=== PATIENT | male | born 1930 | race Caucasian/White ===

== ENCOUNTER 2019-01-17 10:22 | Observation (INO) | payer MEDICARE, OTHER ==
--- NOTE | 2019-01-17 10:38 | EDM.PDOC ---
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 He tells me that he has had pretty profuse diarrhea since then. He reports that he has had watery, nonbloody stools about every 30 minutes since yesterday. He has been feeling somewhat weak when getting up. He took a shower this morning and the went in to check on him because he was taking a long period of time. She found him sitting on the toilet and he reported feeling weak and then apparently he fell off the toilet to the floor. She reports that he did not go out completely and he was talking to her pretty quickly after this. He presents via private vehicle with his family. Denies any abdominal pain. In fact, he reports no pain. He rates his pain as a 0/10. He reports that he has had nausea but no vomiting and he has not had any pain during the entire course of this illness thus far. No fevers. No chills. He has had decreased urine output. No burning with urination. There are no other associated signs or symptoms. There are no other modifying factors. Onset: Other (Midnight between Friday and Friday of this week) Duration: Constant Location: Reports: Other (No pain.) Quality: Reports: Other (None. 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 (see below) (Nothing) - Related Data Allergies Allergy/AdvReac Type Severity Reaction Status Date / Time No Known Allergies Allergy Verified 01/17/19 12:03 Past Medical History Cardiovascular History: Reports: Hypertension - Past Surgical History HEENT Surgical History: Reports: Tonsillectomy Social & Family History - Tobacco Use Smoking Status *Q: Former Smoker (States he quit smoking when he was 50 years of age.) - Alcohol Use Alcohol Use History: No - Living Situation & Occupation Living situation: Reports: (He is here with his .) Occupation: Retired (Retired garcia.) ED ROS GENERAL - Review of Systems Review Of Systems: See Below Constitutional: Reports: Weakness, Fatigue HEENT: Reports: Other (Dry mouth) Respiratory: Reports: No Symptoms Cardiovascular: Reports: No Symptoms Endocrine: Reports: Fatigue GI/Abdominal: Reports: Diarrhea, Nausea. Denies: Abdominal Pain : Reports: Other (Decreased urine output). Denies: Dysuria, Hematuria Musculoskeletal: Reports: No Symptoms Skin: Reports: No Symptoms Neurological: Reports: Syncope (Near syncope this morning.) Hematologic/Lymphatic: Reports: No Symptoms Immunologic: Reports: No Symptoms ED EXAM, GI/ABD - Physical Exam Exam: See Below Exam Limited By: No Limitations General Appearance: Alert, WD/WN, Moderate Distress Eyes: Bilateral: Normal Appearance, EOMI Ears: Normal External Exam, Hearing Grossly Normal Nose: Normal Inspection, Normal Mucosa, No Blood Throat/Mouth: Normal Lips, Normal Voice, No Airway Compromise, Other (Dry mucous membranes) Head: Atraumatic, Normocephalic Neck: Normal Inspection, Supple, Non-Tender, Full Range of Motion Respiratory/Chest: No Respiratory Distress, Lungs Clear, Normal Breath Sounds, No Accessory Muscle Use, Chest Non-Tender Cardiovascular: Normal Peripheral Pulses, Regular Rate, Rhythm, No Murmur GI/Abdominal Exam: Normal Bowel Sounds, Soft, Non-Tender, No Mass Back Exam: Normal Inspection Extremities: Normal Inspection, Normal Range of Motion, Non-Tender, No Pedal Edema, Normal Capillary Refill Neurological: Alert, Oriented, CN II-XII Intact, Normal Cognition, No Motor/ Sensory Deficits Skin Exam: Warm, Dry, Intact, Normal Color, No Rash EKG INTERPRETATION EKG Date: 01/17/19 Time: 10:34 Rhythm: NSR Rate (Beats/Min): 61 Beccaria: LAD-Left Beccaria Deviation P-Wave: Present QRS: LBBB (Left anterior fascicular block) ST-T: Other (Diffuse nonspecific ST-T changes) QT: Prolonged Comparison: NA - No Prior EKG Course - Vital Signs Last Recorded V/S: Last Vital Signs Temp 36.1 C 01/17/19 10:22 Pulse 67 01/17/19 10:22 Resp 18 01/17/19 10:22 BP 90/52 L 01/17/19 10:22 Pulse Ox 100 01/17/19 10:22 - Orders/Labs/Meds Orders: Active Orders 24 hr Category Date Time Status EKG Documentation Completion [RC] ASDIRECTED Care 01/17/19 10:53 Active UA W/MICROSCOPIC [URIN] Stat Lab 01/17/19 11:53 Ordered Sodium Chloride 0.9% [Normal Saline] 1,000 ml Med 01/17/19 12:15 Active IV ASDIRECTED Sodium Chloride 0.9% [Saline Flush] Med 01/17/19 10:52 Active 10 ml FLUSH ASDIRECTED PRN Peripheral IV Insertion Adult [OM.PC] Routine Oth 01/17/19 10:52 Ordered EKG 12 Lead [EK] Routine Ther 01/17/19 10:52 Ordered Medication Orders Sodium Chloride (Normal Saline) 1,000 mls @ 999 mls/hr IV ASDIRECTED SOHAN Sodium Chloride (Saline Flush) 10 ml FLUSH ASDIRECTED PRN PRN Reason: Keep Vein Open Labs: Laboratory Tests 01/17/19 01/17/19 01/17/19 Range/Units 10:55 10:55 10:55 WBC 10.0 (4.5-12.0) X10-3/uL RBC 4.79 (4.30-5.75) x10(6)uL Hgb 15.3 (13.5-17.8) g/dL Hct 44.9 (30.0-51.3) % MCV 93.8 (80-96) fL MCH 31.9 (27.7-33.6) pg MCHC 34.0 (32.2-35.4) g/dL RDW 12.0 (11.5-15.5) % Plt Count 265 (125-369) X10(3)uL MPV 8.2 (7.4-10.4) fL Neut % (Auto) 73.5 (46-82) % Lymph % (Auto) 17.5 (13-37) % [place] % (Auto) 8.3 (4-12) % Eos % (Auto) 0 L (1.0-5.0) % Baso % (Auto) 1 (0-2) % Neut # (Auto) 7.3 (1.6-8.3) # Lymph # (Auto) 1.8 (0.6-5.0) # [place] # (Auto) 0.8 (0.0-1.3) # Eos # (Auto) 0.0 (0.0-0.8) # Baso # (Auto) 0.1 (0.0-0.2) # Sodium 129 L (135-145) mmol/L Potassium 3.8 (3.5-5.3) mmol/L Chloride 93 L (100-110) mmol/L Carbon Dioxide 23 (21-32) mmol/L BUN 1 L (7-18) mg/dL Creatinine 2.3 H* (0.70-1.30) mg/dL Est Cr Clr Drug Dosing TNP Estimated GFR (MDRD) 27 L (>60) BUN/Creatinine Ratio 0.4 L (9-20) Glucose 133 H (80-116) mg/dL Lactic Acid (0.4-2.2) mmol/L Calcium 8.8 (8.6-10.2) mg/dL Magnesium 2.0 (1.8-2.5) mg/dL Total Bilirubin 0.5 (0.1-1.3) mg/dL AST 20 (5-25) IU/L ALT 28 (12-36) U/L Alkaline Phosphatase 73 (56-112) IU/L C-Reactive Protein 6.2 H* (0.5-0.9) mg/dL Total Protein 8.2 H (6.0-8.0) g/dL Albumin 3.8 (3.2-4.6) g/dL Globulin 4.4 g/dL Albumin/Globulin Ratio 0.9 01/17/19 Range/Units 10:55 WBC (4.5-12.0) X10-3/uL RBC (4.30-5.75) x10(6)uL Hgb (13.5-17.8) g/dL Hct (30.0-51.3) % MCV (80-96) fL MCH (27.7-33.6) pg MCHC (32.2-35.4) g/dL RDW (11.5-15.5) % Plt Count (125-369) X10(3)uL MPV (7.4-10.4) fL Neut % (Auto) (46-82) % Lymph % (Auto) (13-37) % [place] % (Auto) (4-12) % Eos % (Auto) (1.0-5.0) % Baso % (Auto) (0-2) % Neut # (Auto) (1.6-8.3) # Lymph # (Auto) (0.6-5.0) # [place] # (Auto) (0.0-1.3) # Eos # (Auto) (0.0-0.8) # Baso # (Auto) (0.0-0.2) # Sodium (135-145) mmol/L Potassium (3.5-5.3) mmol/L Chloride (100-110) mmol/L Carbon Dioxide (21-32) mmol/L BUN (7-18) mg/dL Creatinine (0.70-1.30) mg/dL Est Cr Clr Drug Dosing Estimated GFR (MDRD) (>60) BUN/Creatinine Ratio (9-20) Glucose (80-116) mg/dL Lactic Acid 1.4 (0.4-2.2) mmol/L Calcium (8.6-10.2) mg/dL Magnesium (1.8-2.5) mg/dL Total Bilirubin (0.1-1.3) mg/dL AST (5-25) IU/L ALT (12-36) U/L Alkaline Phosphatase (56-112) IU/L C-Reactive Protein (0.5-0.9) mg/dL Total Protein (6.0-8.0) g/dL Albumin (3.2-4.6) g/dL Globulin g/dL Albumin/Globulin Ratio Meds: Medications Generic Name Dose Route Start Last Admin Trade Name Freq PRN Reason Stop Dose Admin Sodium Chloride 1,000 mls @ 999 mls/hr 01/17/19 12:15 Normal Saline IV ASDIRECTED SOHAN Sodium Chloride 10 ml 01/17/19 10:52 Saline Flush FLUSH ASDIRECTED PRN Keep Vein Open Discontinued Medications Generic Name Dose Route Start Last Admin Trade Name Freq PRN Reason Stop Dose Admin Sodium Chloride 1,000 mls @ 999 mls/hr 01/17/19 10:53 Normal Saline IV 01/17/19 11:53 .BOLUS ONE Ondansetron HCl 4 mg 01/17/19 10:53 Zofran IVPUSH 01/17/19 10:54 ONETIME ONE - Re-Assessments/Exams Free Text/Narrative Re-Assessment/Exam: 01/17/19 12:15: Patient's blood tests show creatinine of 2.3. His EKG showed no injury pattern. He has received 1 L of normal saline and still has had no urine output. His blood pressure has randy to the 130s systolic range. He does feel somewhat improved. He has evidence of fairly significant dehydration with an acute kidney injury with a near syncopal episode this morning and has had hypotension. He will need admission for IV fluids and close monitoring. This plan of care cannot be safely accomplished as an outpatient. He would have significant increase in morbidity and possibly even mortality with attempts at outpatient management of this. I discussed this with the patient and his and they are in agreement with the plans for admission. I discussed the patient' s case with Dr. Shirley, hospitalist at [facility], and he has agreed to admit the patient. Departure - Departure Time of Disposition: 12:25 Disposition: Refer to Observation Condition: Fair (Stable) Clinical Impression: Severe dehydration, Acute kidney injury Diarrhea Qualifiers: Diarrhea type: unspecified type Qualified Code(s): R19.7 - Diarrhea, unspecified - Discharge Information - My Orders Last 24 Hours: My Active Orders 01/17/19 10:52 Sodium Chloride 0.9% [Saline Flush] 10 ml FLUSH ASDIRECTED PRN Peripheral IV Insertion Adult [OM.PC] Routine EKG 12 Lead [EK] Routine 01/17/19 10:53 EKG Documentation Completion [RC] ASDIRECTED 01/17/19 11:53 UA W/MICROSCOPIC [URIN] Stat 01/17/19 12:15 Sodium Chloride 0.9% [Normal Saline] 1,000 ml IV ASDIRECTED - Assessment/Plan Last 24 Hours: My Active Orders 01/17/19 10:52 Sodium Chloride 0.9% [Saline Flush] 10 ml FLUSH ASDIRECTED PRN Peripheral IV Insertion Adult [OM.PC] Routine EKG 12 Lead [EK] Routine 01/17/19 10:53 EKG Documentation Completion [RC] ASDIRECTED 01/17/19 11:53 UA W/MICROSCOPIC [URIN] Stat 01/17/19 12:15 Sodium Chloride 0.9% [Normal Saline] 1,000 ml IV ASDIRECTED
[2019-01-17] MEDS: Sodium Chloride 0.9% 1,000 ML IV ONE ×2 (10:45→15:18)
[2019-01-17] MEDS ORDERED: Sodium Chloride 0.9% 10 ML Syringe FLUSH PRN (10:52)
[2019-01-17] MEDS ORDERED: Ondansetron 4 MG/2 ML SDV IVPUSH ONE (10:53)
[2019-01-17] MEDS ORDERED: Ondansetron 4 MG/2 ML SDV IVPUSH PRN (13:37)
--- NOTE | 2019-01-17 13:42 | PCM.HP.2 ---
H&P History of Present Illness - General Date of Service: 01/17/19 Admit Problem/Dx: Admission Diagnosis/Problem Admission Diagnosis/Problem Severe dehydration Source of Information: Patient History Limitations: Reports: No Limitations - History of Present Illness Initial Comments - Free Text/Narative: This is an 88-year-old male patient became to the ER because of weakness and diarrhea. 36 hours before he was seen in the ER which is today he started having severe diarrhea. It happened right after midnight on Friday he said he was up all night with watery diarrhea with no blood. He continued to have diarrhea and finally this morning he got up and says it finally stopped. He went to the toilet and his went to check on him and he couldn't really get up in a car slid off the toilet. He is brought into the ambulance per car. Denies abdominal pain, nausea vomiting, fevers, chills, cough, nasal congestion. He's had no recent antibiotic use according to the patient and is not travel to any third world countries. He denies any exposures. - Related Data Allergies/Adverse Reactions: Allergies Allergy/AdvReac Type Severity Reaction Status Date / Time No Known Allergies Allergy Verified 01/17/19 12:03 Past Medical History Cardiovascular History: Reports: Hypertension - Past Surgical History HEENT Surgical History: Reports: Tonsillectomy Social & Family History - Tobacco Use Smoking Status *Q: Former Smoker (States he quit smoking when he was 50 years of age.) - Living Situation & Occupation Living situation: Reports: (He is here with his .) Occupation: Retired (Retired garcia.) H&P Review of Systems - Review of Systems: Review Of Systems: See Below General: Reports: Weakness HEENT: Reports: No Symptoms Pulmonary: Reports: No Symptoms Cardiovascular: Reports: No Symptoms Gastrointestinal: Reports: Diarrhea, Decreased Appetite. Denies: Abdominal Pain , Bloody Stool, Constipation, Difficulty Swallowing, Melena, Nausea, Vomiting Genitourinary: Reports: No Symptoms Musculoskeletal: Reports: No Symptoms Skin: Reports: No Symptoms Psychiatric: Reports: No Symptoms Neurological: Reports: No Symptoms Hematologic/Lymphatic: Reports: No Symptoms Immunologic: Reports: No Symptoms Exam - Exam Exam: See Below - Vital Signs Vital Signs: Last Vital Signs Temp 97.0 F 01/17/19 10:22 Pulse 67 01/17/19 10:22 Resp 18 01/17/19 10:22 BP 90/52 L 01/17/19 10:22 Pulse Ox 100 01/17/19 10:22 Weight: 135 lb - Exam General: Alert, Oriented, 4 HEENT: Hearing Intact, Mucosa Moist & [place], Posterior Pharynx Clear, TMs Clear Neck: Supple, Trachea Midline. No: +2 Carotid Pulse wo Bruit, Lymphadenopathy, Carotid Bruit, JVD Lungs: Clear to Auscultation, Normal Respiratory Effort. No: Crackles, Rales, Rhonchi, Rub Cardiovascular: Regular Rate, Regular Rhythm. No: Irregular Rhythm, Systolic Murmur GI/Abdominal Exam: Normal Bowel Sounds, Soft, Non-Tender, No Organomegaly, No Distention, No Abnormal Bruit, No Mass Back Exam: Normal Inspection, Full Range of Motion Extremities: Normal Inspection, No Pedal Edema Skin: Warm, Dry, Intact Neurological: Normal Speech, Normal Tone Neuro Extensive - Mental Status: Alert, Oriented x3, Normal Cognition Psychiatric: Alert - Patient Data Lab Results Last 24 hrs: Laboratory Results - last 24 hr 01/17/19 01/17/19 01/17/19 Range/Units 10:55 10:55 10:55 WBC 10.0 (4.5-12.0) X10-3/uL RBC 4.79 (4.30-5.75) x10(6)uL Hgb 15.3 (13.5-17.8) g/dL Hct 44.9 (30.0-51.3) % MCV 93.8 (80-96) fL MCH 31.9 (27.7-33.6) pg MCHC 34.0 (32.2-35.4) g/dL RDW 12.0 (11.5-15.5) % Plt Count 265 (125-369) X10(3)uL MPV 8.2 (7.4-10.4) fL Neut % (Auto) 73.5 (46-82) % Lymph % (Auto) 17.5 (13-37) % [place] % (Auto) 8.3 (4-12) % Eos % (Auto) 0 L (1.0-5.0) % Baso % (Auto) 1 (0-2) % Neut # (Auto) 7.3 (1.6-8.3) # Lymph # (Auto) 1.8 (0.6-5.0) # [place] # (Auto) 0.8 (0.0-1.3) # Eos # (Auto) 0.0 (0.0-0.8) # Baso # (Auto) 0.1 (0.0-0.2) # Sodium 129 L (135-145) mmol/L Potassium 3.8 (3.5-5.3) mmol/L Chloride 93 L (100-110) mmol/L Carbon Dioxide 23 (21-32) mmol/L BUN 1 L (7-18) mg/dL Creatinine 2.3 H* (0.70-1.30) mg/dL Est Cr Clr Drug Dosing TNP Estimated GFR (MDRD) 27 L (>60) BUN/Creatinine Ratio 0.4 L (9-20) Glucose 133 H (80-116) mg/dL Lactic Acid (0.4-2.2) mmol/L Calcium 8.8 (8.6-10.2) mg/dL Magnesium 2.0 (1.8-2.5) mg/dL Total Bilirubin 0.5 (0.1-1.3) mg/dL AST 20 (5-25) IU/L ALT 28 (12-36) U/L Alkaline Phosphatase 73 (56-112) IU/L C-Reactive Protein 6.2 H* (0.5-0.9) mg/dL Total Protein 8.2 H (6.0-8.0) g/dL Albumin 3.8 (3.2-4.6) g/dL Globulin 4.4 g/dL Albumin/Globulin Ratio 0.9 01/17/19 Range/Units 10:55 WBC (4.5-12.0) X10-3/uL RBC (4.30-5.75) x10(6)uL Hgb (13.5-17.8) g/dL Hct (30.0-51.3) % MCV (80-96) fL MCH (27.7-33.6) pg MCHC (32.2-35.4) g/dL RDW (11.5-15.5) % Plt Count (125-369) X10(3)uL MPV (7.4-10.4) fL Neut % (Auto) (46-82) % Lymph % (Auto) (13-37) % [place] % (Auto) (4-12) % Eos % (Auto) (1.0-5.0) % Baso % (Auto) (0-2) % Neut # (Auto) (1.6-8.3) # Lymph # (Auto) (0.6-5.0) # [place] # (Auto) (0.0-1.3) # Eos # (Auto) (0.0-0.8) # Baso # (Auto) (0.0-0.2) # Sodium (135-145) mmol/L Potassium (3.5-5.3) mmol/L Chloride (100-110) mmol/L Carbon Dioxide (21-32) mmol/L BUN (7-18) mg/dL Creatinine (0.70-1.30) mg/dL Est Cr Clr Drug Dosing Estimated GFR (MDRD) (>60) BUN/Creatinine Ratio (9-20) Glucose (80-116) mg/dL Lactic Acid 1.4 (0.4-2.2) mmol/L Calcium (8.6-10.2) mg/dL Magnesium (1.8-2.5) mg/dL Total Bilirubin (0.1-1.3) mg/dL AST (5-25) IU/L ALT (12-36) U/L Alkaline Phosphatase (56-112) IU/L C-Reactive Protein (0.5-0.9) mg/dL Total Protein (6.0-8.0) g/dL Albumin (3.2-4.6) g/dL Globulin g/dL Albumin/Globulin Ratio Result Diagrams: 01/17/19 10:55 01/17/19 10:55 - Problem List (1) Hyponatremia SNOMED Code(s): 59287461 ICD Code: E87.1 - HYPO-OSMOLALITY AND HYPONATREMIA Status: Acute Current Visit: Yes (2) Acute kidney injury SNOMED Code(s): 38264139, 55187035 ICD Code: N17.9 - ACUTE KIDNEY FAILURE, UNSPECIFIED Status: Acute Current Visit: Yes (3) Diarrhea SNOMED Code(s): 07003846 ICD Code: R19.7 - DIARRHEA, UNSPECIFIED Status: Acute Current Visit: Yes Qualifiers: Diarrhea type: unspecified type Qualified Code(s): R19.7 - Diarrhea, unspecified (4) Severe dehydration SNOMED Code(s): 057205732 ICD Code: E86.0 - DEHYDRATION Status: Acute Current Visit: Yes Problem List Initiated/Reviewed/Updated: Yes Orders Last 24hrs: Active Orders 24 hr Category Date Time Status Admission Status [Patient Status] [ADT] Routine ADT 01/17/19 12:28 Active Cardiac Monitoring [RC] .As Directed Care 01/17/19 12:28 Active EKG Documentation Completion [RC] ASDIRECTED Care 01/17/19 10:53 Active Up With Assistance [RC] ASDIRECTED Care 01/17/19 13:35 Ordered Vital Signs [RC] Q6H Care 01/17/19 13:36 Ordered Regular Diet [DIET] Diet 01/17/19 Dinner Ordered UA W/MICROSCOPIC [URIN] Stat Lab 01/17/19 11:53 Ordered Enoxaparin [Lovenox] Med 01/17/19 13:45 Ordered 40 mg SUBCUT Q24H Ondansetron [Zofran] Med 01/17/19 13:37 Ordered 4 mg IVPUSH Q6H PRN Sodium Chloride 0.9% [Normal Saline] 1,000 ml Med 01/17/19 12:15 Active IV ASDIRECTED Sodium Chloride 0.9% [Saline Flush] Med 01/17/19 10:52 Active 10 ml FLUSH ASDIRECTED PRN Peripheral IV Insertion Adult [OM.PC] Routine Oth 01/17/19 10:52 Ordered SCD [Sequential Compression Device] [OM.PC] Routine Oth 01/17/19 13:36 Ordered Resuscitation Status Routine Resus Stat 01/17/19 13:34 Ordered EKG 12 Lead [EK] Routine Ther 01/17/19 10:52 Ordered Medication Orders Enoxaparin Sodium (Lovenox) 40 mg SUBCUT Q24H SOHAN Sodium Chloride (Normal Saline) 1,000 mls @ 150 mls/hr IV ASDIRECTED SOHAN Ondansetron HCl (Zofran) 4 mg IVPUSH Q6H PRN PRN Reason: Nausea/Vomiting Sodium Chloride (Saline Flush) 10 ml FLUSH ASDIRECTED PRN PRN Reason: Keep Vein Open Assessment/Plan Comment:: 1. Admit for observation. 2. IV fluids. Most likely is acute kidney injury and hyponatremia are due to dehydration. 3. Lovenox and SCDs for VTE prophylaxis. 4. Hold his blood pressure medicine for now. 5. Up with assist 6. Discussed living [place] and he likes to be a full code 7. Recheck all his labs in a.m. 8. Monitor I's and O's and daily weights. 9. Regular diet - Mortality Measure Prognosis:: Good
[2019-01-17] MEDS ORDERED: Enoxaparin 40 MG/0.4 ML Syringe SUBCUT SCH (13:45)
[2019-01-17] MEDS: Sodium Chloride 0.9% 1,000 ML IV SCH ×2 (15:00→20:24)
[2019-01-17] MEDS ORDERED: Loperamide 2 MG Cap PO PRN (17:08)
[2019-01-17] MEDS ORDERED: Enoxaparin 30 MG/0.3 ML Syringe SUBCUT SCH (18:00)
[2019-01-18] MEDS: Sodium Chloride 0.9% 1,000 ML IV SCH (03:57)
--- NOTE | 2019-01-18 09:08 | PCM.PN ---
- General Info Date of Service: 01/18/19 Admission Dx/Problem (Free Text): Patient is without complaints. He is eating and drinking and has no diarrhea. He denies abdominal pain, nausea, vomiting, fevers, chills. - Patient Data Vitals - Most Recent: Last Vital Signs Temp 97.9 F 01/17/19 23:15 Pulse 86 01/17/19 23:15 Resp 20 01/17/19 23:15 BP 149/81 H 01/17/19 23:15 Pulse Ox 96 01/17/19 23:15 Weight - Most Recent: 145 lb 6.4 oz I&O - Last 24 Hours: Intake & Output 01/17/19 01/18/19 01/18/19 22:59 06:59 14:59 Intake Total 1701 1163 240 Output Total 700 900 200 Balance 1001 263 40 Lab Results Last 24 Hours: Laboratory Results - last 24 hr 01/17/19 01/17/19 01/17/19 Range/Units 10:55 10:55 10:55 WBC 10.0 (4.5-12.0) X10-3/uL RBC 4.79 (4.30-5.75) x10(6)uL Hgb 15.3 (13.5-17.8) g/dL Hct 44.9 (30.0-51.3) % MCV 93.8 (80-96) fL MCH 31.9 (27.7-33.6) pg MCHC 34.0 (32.2-35.4) g/dL RDW 12.0 (11.5-15.5) % Plt Count 265 (125-369) X10(3)uL MPV 8.2 (7.4-10.4) fL Neut % (Auto) 73.5 (46-82) % Lymph % (Auto) 17.5 (13-37) % [place] % (Auto) 8.3 (4-12) % Eos % (Auto) 0 L (1.0-5.0) % Baso % (Auto) 1 (0-2) % Neut # (Auto) 7.3 (1.6-8.3) # Lymph # (Auto) 1.8 (0.6-5.0) # [place] # (Auto) 0.8 (0.0-1.3) # Eos # (Auto) 0.0 (0.0-0.8) # Baso # (Auto) 0.1 (0.0-0.2) # Sodium 129 L (135-145) mmol/L Potassium 3.8 (3.5-5.3) mmol/L Chloride 93 L (100-110) mmol/L Carbon Dioxide 23 (21-32) mmol/L BUN 1 L (7-18) mg/dL Creatinine 2.3 H* (0.70-1.30) mg/dL Est Cr Clr Drug Dosing TNP Estimated GFR (MDRD) 27 L (>60) BUN/Creatinine Ratio 0.4 L (9-20) Glucose 133 H (80-116) mg/dL Lactic Acid (0.4-2.2) mmol/L Calcium 8.8 (8.6-10.2) mg/dL Magnesium 2.0 (1.8-2.5) mg/dL Total Bilirubin 0.5 (0.1-1.3) mg/dL AST 20 (5-25) IU/L ALT 28 (12-36) U/L Alkaline Phosphatase 73 (56-112) IU/L C-Reactive Protein 6.2 H* (0.5-0.9) mg/dL Total Protein 8.2 H (6.0-8.0) g/dL Albumin 3.8 (3.2-4.6) g/dL Globulin 4.4 g/dL Albumin/Globulin Ratio 0.9 Urine Color (YELLOW) Urine Appearance (CLEAR) Urine pH (5.0-6.5) Ur Specific [place] (1.010-1.025) Urine Protein (NEGATIVE) mg/dL Urine Glucose (UA) (NORMAL) mg/dL Urine Ketones (NEGATIVE) mg/dL Urine Occult Blood (NEGATIVE) Urine Nitrite (NEGATIVE) Urine Bilirubin (NEGATIVE) Urine Urobilinogen (NEGATIVE) mg/dL Ur Leukocyte Esterase (NEGATIVE) Urine RBC (0-5) Urine WBC (0-5) Ur Squamous Epith Cells (NS,R,O) Urine Bacteria (NS) Hyaline Casts (NS) 01/17/19 01/17/19 01/18/19 Range/Units 10:55 14:35 06:20 WBC (4.5-12.0) X10-3/uL RBC (4.30-5.75) x10(6)uL Hgb (13.5-17.8) g/dL Hct (30.0-51.3) % MCV (80-96) fL MCH (27.7-33.6) pg MCHC (32.2-35.4) g/dL RDW (11.5-15.5) % Plt Count (125-369) X10(3)uL MPV (7.4-10.4) fL Neut % (Auto) (46-82) % Lymph % (Auto) (13-37) % [place] % (Auto) (4-12) % Eos % (Auto) (1.0-5.0) % Baso % (Auto) (0-2) % Neut # (Auto) (1.6-8.3) # Lymph # (Auto) (0.6-5.0) # [place] # (Auto) (0.0-1.3) # Eos # (Auto) (0.0-0.8) # Baso # (Auto) (0.0-0.2) # Sodium 135 (135-145) mmol/L Potassium 3.1 L (3.5-5.3) mmol/L Chloride 102 D (100-110) mmol/L Carbon Dioxide 24 (21-32) mmol/L BUN 23 H D (7-18) mg/dL Creatinine 1.1 (0.70-1.30) mg/dL Est Cr Clr Drug Dosing 44.13 Estimated GFR (MDRD) > 60 (>60) BUN/Creatinine Ratio 20.9 H (9-20) Glucose 102 (80-116) mg/dL Lactic Acid 1.4 (0.4-2.2) mmol/L Calcium 7.3 L (8.6-10.2) mg/dL Magnesium (1.8-2.5) mg/dL Total Bilirubin (0.1-1.3) mg/dL AST (5-25) IU/L ALT (12-36) U/L Alkaline Phosphatase (56-112) IU/L C-Reactive Protein (0.5-0.9) mg/dL Total Protein (6.0-8.0) g/dL Albumin (3.2-4.6) g/dL Globulin g/dL Albumin/Globulin Ratio Urine Color Yellow (YELLOW) Urine Appearance Clear (CLEAR) Urine pH 5.0 (5.0-6.5) Ur Specific [place] 1.015 (1.010-1.025) Urine Protein Trace (NEGATIVE) mg/dL Urine Glucose (UA) Normal (NORMAL) mg/dL Urine Ketones 15 H (NEGATIVE) mg/dL Urine Occult Blood Trace (NEGATIVE) Urine Nitrite Negative (NEGATIVE) Urine Bilirubin Negative (NEGATIVE) Urine Urobilinogen Normal (NEGATIVE) mg/dL Ur Leukocyte Esterase Negative (NEGATIVE) Urine RBC 0-5 (0-5) Urine WBC 0-5 (0-5) Ur Squamous Epith Cells Occasional (NS,R,O) Urine Bacteria Rare H (NS) Hyaline Casts Moderate H (NS) Med Orders - Current: Current Medications Enoxaparin Sodium (Lovenox) 30 mg SUBCUT Q24H [facility] Last Admin: 01/17/19 17:30 Dose: 30 mg Sodium Chloride (Normal Saline) 1,000 mls @ 150 mls/hr IV ASDIRECTED [facility] Last Admin: 01/18/19 03:57 Dose: 125 mls/hr Loperamide HCl (Imodium) 2 mg PO Q4H PRN PRN Reason: Diarrhea Ondansetron HCl (Zofran) 4 mg IVPUSH Q6H PRN PRN Reason: Nausea/Vomiting Sodium Chloride (Saline Flush) 10 ml FLUSH ASDIRECTED PRN PRN Reason: Keep Vein Open Discontinued Medications Enoxaparin Sodium (Lovenox) 40 mg SUBCUT Q24H [facility] Last Admin: 01/17/19 17:36 Dose: Not Given Enoxaparin Sodium (Lovenox) 30 mg SUBCUT Q24H [facility] Sodium Chloride (Normal Saline) 1,000 mls @ 999 mls/hr IV .BOLUS ONE Stop: 01/17/19 11:53 Last Admin: 01/17/19 15:18 Dose: Not Given Ondansetron HCl (Zofran) 4 mg IVPUSH ONETIME ONE Stop: 01/17/19 10:54 Last Admin: 01/17/19 15:18 Dose: Not Given - Exam General: Alert, Oriented Lungs: Clear to Auscultation, Normal Respiratory Effort GI/Abdominal Exam: Normal Bowel Sounds, Soft, Non-Tender, No Distention, No Abnormal Bruit - Problem List & Annotations (1) Hyponatremia SNOMED Code(s): 19821982 Code(s): E87.1 - HYPO-OSMOLALITY AND HYPONATREMIA Status: Acute Current Visit: Yes (2) Acute kidney injury SNOMED Code(s): 83938067, 81952409 Code(s): N17.9 - ACUTE KIDNEY FAILURE, UNSPECIFIED Status: Acute Current Visit: Yes (3) Diarrhea SNOMED Code(s): 61359606 Code(s): R19.7 - DIARRHEA, UNSPECIFIED Status: Acute Current Visit: Yes Qualifiers: Diarrhea type: unspecified type Qualified Code(s): R19.7 - Diarrhea, unspecified (4) Severe dehydration SNOMED Code(s): 136404630 Code(s): E86.0 - DEHYDRATION Status: Acute Current Visit: Yes (5) Hypokalemia SNOMED Code(s): 84154886 Code(s): E87.6 - HYPOKALEMIA Status: Acute Current Visit: Yes - Problem List Review Problem List Initiated/Reviewed/Updated: Yes - My Orders Last 24 Hours: My Active Orders 01/17/19 13:34 Resuscitation Status Routine 01/17/19 13:35 Up With Assistance [RC] ASDIRECTED 01/17/19 13:36 Vital Signs [RC] QSHIFT SCD [Sequential Compression Device] [OM.PC] Routine 01/17/19 13:37 Ondansetron [Zofran] 4 mg IVPUSH Q6H PRN 01/17/19 13:42 Daily Weight [Height and Weight] [RC] DAILY 01/17/19 13:43 Intake and Output [RC] 06,14,00 01/17/19 17:08 Loperamide [Imodium] 2 mg PO Q4H PRN 01/17/19 18:00 Enoxaparin [Lovenox] 30 mg SUBCUT Q24H 01/17/19 Dinner Regular Diet [DIET] - Plan Plan:: 1. I had the nurses walk-in. They felt he was doing good and stable his feet. He 's gained 10 pounds and his creatinine and sodium are correct. He slightly hypokalemic. We'll discharge him home since he is asymptomatic and has no diarrhea and his dehydration is corrected. He's able to eat and drink. He'll follow-up with his primary provider within a week.
--- NOTE | 2019-01-18 09:12 | PCM.DCSUM1 ---
Discharge Summary - Hospital Course Free Text/Narrative:: Hospital course-patient was placed in the hospital. He was given a liter and a half of normal saline in the ER. We continue 250 cc an hour until 10 PM tonight and went to 1 25 mL an hour. Patient had one small diarrhea stool in the hospital. By the next morning his diarrhea stopped. He never had any fevers, chills, nausea, vomiting or abdominal pain. His initial sodium is 129 and by the morning it was 135. Initial creatinine was 2.3 in by the next morning is 1.1. Potassium dropped just a little bit from 3.8-3.1. Patient was able to eat and drink. We walked him and he was stable on his feet. So we'll discharge him home. With regular food he should correct his potassium. We held his blood pressure medications while he was in the hospital. He'll resume his regular medications at home. He'll follow-up with his primary provider in one week. Brief History: This is an 88-year-old male patient became to the ER because of weakness and diarrhea. 36 hours before he was seen in the ER which is today he started having severe diarrhea. It happened right after midnight on Friday he said he was up all night with watery diarrhea with no blood. He continued to have diarrhea and finally this morning he got up and says it finally stopped. He went to the toilet and his went to check on him and he couldn't really get up in a car slid off the toilet. He is brought into the ambulance per car. Denies abdominal pain, nausea vomiting, fevers, chills, cough, nasal congestion. He's had no recent antibiotic use according to the patient and is not travel to any third world countries. He denies any exposures. Diagnosis: Stroke: No - Discharge Data Discharge Date: 01/18/19 Discharge Disposition: Home, Self-Care 01 Condition: Good - Discharge Diagnosis/Problem(s) (1) Hyponatremia SNOMED Code(s): 89467250 ICD Code: E87.1 - HYPO-OSMOLALITY AND HYPONATREMIA Status: Acute Current Visit: Yes (2) Acute kidney injury SNOMED Code(s): 38049449, 58513087 ICD Code: N17.9 - ACUTE KIDNEY FAILURE, UNSPECIFIED Status: Acute Current Visit: Yes (3) Diarrhea SNOMED Code(s): 11424448 ICD Code: R19.7 - DIARRHEA, UNSPECIFIED Status: Acute Current Visit: Yes Qualifiers: Diarrhea type: unspecified type Qualified Code(s): R19.7 - Diarrhea, unspecified (4) Severe dehydration SNOMED Code(s): 446012061 ICD Code: E86.0 - DEHYDRATION Status: Acute Current Visit: Yes (5) Hypokalemia SNOMED Code(s): 29419732 ICD Code: E87.6 - HYPOKALEMIA Status: Acute Current Visit: Yes - Patient Instructions Diet: Regular Diet as Tolerated Activity: As Tolerated Driving: May Drive Today Showering/Bathing: May Shower Notify Provider of: Nausea and/or Vomiting Other/Special Instructions: 1. Recheck with Carolina Rivera in 1 week. 2. I told the patient has any diarrhea that he should use some [id number] Imodium. - Discharge Plan Home Medications: Home Meds Losartan/Hydrochlorothiazide [Losartan-HCTZ 100-25 MG] 1 tab PO DAILY 01/17/19 [ History] Tamsulosin HCl [Flomax] 0.4 mg PO DAILY 01/17/19 [History] amLODIPine [Norvasc] 5 mg PO DAILY 01/17/19 [History] Patient Handouts: Diarrhea, Adult, Vomiting, Adult, Fall Prevention in Hospitals, Adult, Venous Thromboembolism Prevention Forms: ED Department Discharge Referrals: Carolina [facility] [employer] [Primary Care Provider] - - Discharge Summary/Plan Comment DC Time >30 min.: No - Patient Data Vitals - Most Recent: Last Vital Signs Temp 97.9 F 01/17/19 23:15 Pulse 86 01/17/19 23:15 Resp 20 01/17/19 23:15 BP 149/81 H 01/17/19 23:15 Pulse Ox 96 01/17/19 23:15 Weight - Most Recent: 145 lb 6.4 oz I&O - Last 24 hours: Intake & Output 01/17/19 01/18/19 01/18/19 22:59 06:59 14:59 Intake Total 1701 1163 240 Output Total 700 900 200 Balance 1001 263 40 Lab Results - Last 24 hrs: Laboratory Results - last 24 hr 09/08/19 09/08/19 09/08/19 Range/Units 10:55 10:55 10:55 WBC 10.0 (4.5-12.0) X10-3/uL RBC 4.79 (4.30-5.75) x10(6)uL Hgb 15.3 (13.5-17.8) g/dL Hct 44.9 (30.0-51.3) % MCV 93.8 (80-96) fL MCH 31.9 (27.7-33.6) pg MCHC 34.0 (32.2-35.4) g/dL RDW 12.0 (11.5-15.5) % Plt Count 265 (125-369) X10(3)uL MPV 8.2 (7.4-10.4) fL Neut % (Auto) 73.5 (46-82) % Lymph % (Auto) 17.5 (13-37) % [place] % (Auto) 8.3 (4-12) % Eos % (Auto) 0 L (1.0-5.0) % Baso % (Auto) 1 (0-2) % Neut # (Auto) 7.3 (1.6-8.3) # Lymph # (Auto) 1.8 (0.6-5.0) # [place] # (Auto) 0.8 (0.0-1.3) # Eos # (Auto) 0.0 (0.0-0.8) # Baso # (Auto) 0.1 (0.0-0.2) # Sodium 129 L (135-145) mmol/L Potassium 3.8 (3.5-5.3) mmol/L Chloride 93 L (100-110) mmol/L Carbon Dioxide 23 (21-32) mmol/L BUN 1 L (7-18) mg/dL Creatinine 2.3 H* (0.70-1.30) mg/dL Est Cr Clr Drug Dosing TNP Estimated GFR (MDRD) 27 L (>60) BUN/Creatinine Ratio 0.4 L (9-20) Glucose 133 H (80-116) mg/dL Lactic Acid (0.4-2.2) mmol/L Calcium 8.8 (8.6-10.2) mg/dL Magnesium 2.0 (1.8-2.5) mg/dL Total Bilirubin 0.5 (0.1-1.3) mg/dL AST 20 (5-25) IU/L ALT 28 (12-36) U/L Alkaline Phosphatase 73 (56-112) IU/L C-Reactive Protein 6.2 H* (0.5-0.9) mg/dL Total Protein 8.2 H (6.0-8.0) g/dL Albumin 3.8 (3.2-4.6) g/dL Globulin 4.4 g/dL Albumin/Globulin Ratio 0.9 Urine Color (YELLOW) Urine Appearance (CLEAR) Urine pH (5.0-6.5) Ur Specific [place] (1.010-1.025) Urine Protein (NEGATIVE) mg/dL Urine Glucose (UA) (NORMAL) mg/dL Urine Ketones (NEGATIVE) mg/dL Urine Occult Blood (NEGATIVE) Urine Nitrite (NEGATIVE) Urine Bilirubin (NEGATIVE) Urine Urobilinogen (NEGATIVE) mg/dL Ur Leukocyte Esterase (NEGATIVE) Urine RBC (0-5) Urine WBC (0-5) Ur Squamous Epith Cells (NS,R,O) Urine Bacteria (NS) Hyaline Casts (NS) 01/17/19 01/17/19 01/18/19 Range/Units 10:55 14:35 06:20 WBC (4.5-12.0) X10-3/uL RBC (4.30-5.75) x10(6)uL Hgb (13.5-17.8) g/dL Hct (30.0-51.3) % MCV (80-96) fL MCH (27.7-33.6) pg MCHC (32.2-35.4) g/dL RDW (11.5-15.5) % Plt Count (125-369) X10(3)uL MPV (7.4-10.4) fL Neut % (Auto) (46-82) % Lymph % (Auto) (13-37) % [place] % (Auto) (4-12) % Eos % (Auto) (1.0-5.0) % Baso % (Auto) (0-2) % Neut # (Auto) (1.6-8.3) # Lymph # (Auto) (0.6-5.0) # [place] # (Auto) (0.0-1.3) # Eos # (Auto) (0.0-0.8) # Baso # (Auto) (0.0-0.2) # Sodium 135 (135-145) mmol/L Potassium 3.1 L (3.5-5.3) mmol/L Chloride 102 D (100-110) mmol/L Carbon Dioxide 24 (21-32) mmol/L BUN 23 H D (7-18) mg/dL Creatinine 1.1 (0.70-1.30) mg/dL Est Cr Clr Drug Dosing 44.13 Estimated GFR (MDRD) > 60 (>60) BUN/Creatinine Ratio 20.9 H (9-20) Glucose 102 (80-116) mg/dL Lactic Acid 1.4 (0.4-2.2) mmol/L Calcium 7.3 L (8.6-10.2) mg/dL Magnesium (1.8-2.5) mg/dL Total Bilirubin (0.1-1.3) mg/dL AST (5-25) IU/L ALT (12-36) U/L Alkaline Phosphatase (56-112) IU/L C-Reactive Protein (0.5-0.9) mg/dL Total Protein (6.0-8.0) g/dL Albumin (3.2-4.6) g/dL Globulin g/dL Albumin/Globulin Ratio Urine Color Yellow (YELLOW) Urine Appearance Clear (CLEAR) Urine pH 5.0 (5.0-6.5) Ur Specific [place] 1.015 (1.010-1.025) Urine Protein Trace (NEGATIVE) mg/dL Urine Glucose (UA) Normal (NORMAL) mg/dL Urine Ketones 15 H (NEGATIVE) mg/dL Urine Occult Blood Trace (NEGATIVE) Urine Nitrite Negative (NEGATIVE) Urine Bilirubin Negative (NEGATIVE) Urine Urobilinogen Normal (NEGATIVE) mg/dL Ur Leukocyte Esterase Negative (NEGATIVE) Urine RBC 0-5 (0-5) Urine WBC 0-5 (0-5) Ur Squamous Epith Cells Occasional (NS,R,O) Urine Bacteria Rare H (NS) Hyaline Casts Moderate H (NS) Med Orders - Current: Current Medications Enoxaparin Sodium (Lovenox) 30 mg SUBCUT Q24H [facility] Last Admin: 01/17/19 17:30 Dose: 30 mg Sodium Chloride (Normal Saline) 1,000 mls @ 150 mls/hr IV ASDIRECTED [facility] Last Admin: 01/18/19 03:57 Dose: 125 mls/hr Loperamide HCl (Imodium) 2 mg PO Q4H PRN PRN Reason: Diarrhea Ondansetron HCl (Zofran) 4 mg IVPUSH Q6H PRN PRN Reason: Nausea/Vomiting Sodium Chloride (Saline Flush) 10 ml FLUSH ASDIRECTED PRN PRN Reason: Keep Vein Open Discontinued Medications Enoxaparin Sodium (Lovenox) 40 mg SUBCUT Q24H [facility] Last Admin: 01/17/19 17:36 Dose: Not Given Enoxaparin Sodium (Lovenox) 30 mg SUBCUT Q24H [facility] Sodium Chloride (Normal Saline) 1,000 mls @ 999 mls/hr IV .BOLUS ONE Stop: 01/17/19 11:53 Last Admin: 01/17/19 15:18 Dose: Not Given Ondansetron HCl (Zofran) 4 mg IVPUSH ONETIME ONE Stop: 01/17/19 10:54 Last Admin: 01/17/19 15:18 Dose: Not Given
[2019-01-18] MEDS ORDERED: Enoxaparin 40 MG/0.4 ML Syringe SUBCUT SCH (14:00)
== END 2019-01-18 11:45 | disposition home or self-care (01) ==
LOC: FB.ED 10:22 → FB.MS 12:28
PROVIDERS: ADMIT Family Medicine; ATTEND Family Medicine
DX: E86.0 Dehydration (principal); R19.7 Diarrhea, unspecified; R53.1 Weakness; E87.1 Hypo-osmolality and hyponatremia; N17.9 Acute kidney failure, unspecified; E87.6 Hypokalemia; I10 Essential (primary) hypertension; Z87.891 Personal history of nicotine dependence
CPT/HCPCS: 36415; 80048; 80053; 81001; 83605; 83735; 85025; 86140; 93005; 96360; 96361; 96372; 99285; G0378; J1650; J7030